=== PATIENT | male | born 1950 | race Caucasian/White ===

== ENCOUNTER → 2016-11-09 | Outpatient (CLI) | payer OTHER ==
[~2016-11-09] MED LIST: CLC100 PO
--- NOTE | 2016-11-09 08:50 | DIAGNOSTIC IMAGING REPORT ---
CHEST CT WITHOUT CONTRAST CT DOSE: 375.22 mGycm HISTORY: Pulmonary nodule R91.1 Solitary pulmonary nodulect chest no contrast in 8 mo to a TECHNIQUE: Multiaxial CT images of the chest were performed without contrast. COMPARISON: 03/09/2016 FINDINGS: Unchanging right apical 3 mm nodule. Unchanging scattered pleural thickening as well as calcified granuloma lateral aspect right pulmonary apex.. No new or interval parenchymal nodularity. No significant hilar or mediastinal adenopathy. IMPRESSION: Stable exam. Unchanging pulmonary calcified as well as noncalcified calcified nodularity. Unchanging scattered pleural thickening. 1 year follow-up is suggested Electronically signed by: Kody Ahuja M.D. 11/09/2016 8:48 AM Dictated Date/Time: 11/09/2016 8:40 AM
== END | disposition home or self-care (01) ==
LOC: C.CTS 08:28
PROVIDERS: ATTEND Internal Medicine Pulmonary Disease
DX: R91.1 Solitary pulmonary nodule (principal)

== ENCOUNTER → 2017-04-01 | Outpatient (CLI) | payer OTHER | END | disposition home or self-care (01) | LOC: C.LAB 17:30 | PROVIDERS: ATTEND Urology | DX: C61 Malignant neoplasm of prostate (principal) ==

== ENCOUNTER → 2017-11-18 | Outpatient (CLI) | payer OTHER | END | disposition home or self-care (01) | LOC: C.LABPBG 09:22 | PROVIDERS: ATTEND Urology | DX: C61 Malignant neoplasm of prostate (principal) ==